=== PATIENT | female | born 1935 | race Caucasian/White ===

== ENCOUNTER 2020-11-02 16:12 | Emergency (ER) | payer MEDICARE, OTHER ==
[~2020-11-02] VITALS: Ht 152.4 cm; Wt 42.2 kg
[~2020-11-02 16:12] MED LIST: ASPI81CH PO; CEPH500 PO; Daily Vite1 EACH PO; LEVCAR2510 PO; Omeprazole20 M1 PO; SIMV10 PO
[2020-11-02 16:51] LABS: BASOPHILS ABSOLUTE AUTO 0.02 K/mm3 (0.00-0.23); BASOPHILS PERCENT AUTO 0 % (0-2); EOSINOPHILS PERCENT AUTO 2 % (0-6); Hematocrit 32.4 % (33.0-51.0); Hemoglobin 10.2 g/dL (11.5-16.0); IMMATURE GRAN ABSOLUTE AUTO 0.02 K/mm3 (0.00-0.10); IMMATURE GRAN PERCENT AUTO 0 % (0-1); LYMPHOCYTES ABSOLUTE AUTO 0.81 K/mm3 (0.84-5.20); LYMPHOCYTES PERCENT AUTO 15 % (21-46); MONOCYTES PERCENT AUTO 11 % (4-13); Mean Corpuscular HGB 30.8 pg (26.0-34.0); Mean Corpuscular HGB Conc 31.5 g/dL (31.5-36.5); Mean Corpuscular Volume 98 fL (80-100); Mean Platelet Volume 9.4 fL (9.1-12.4); NEUTROPHILS ABSOLUTE AUTO 3.89 K/mm3 (1.96-9.15); NEUTROPHILS PERCENT AUTO 72 % (41-73); Platelet Count 225 K/mm3 (150-400); RDW Coefficient Variation 14.3 % (11.7-14.2); RDW Standard Deviation 51.4 fL (35.1-46.3); Red Blood Cell Count 3.31 M/mm3 (3.80-5.20); White Blood Cell Count 5.44 K/mm3 (4.00-11.30)
[2020-11-02] MEDS ORDERED: Vitamin D2000 UNIT PO (17:05)
[2020-11-02 17:12] LABS: Alanine Aminotransfer (ALT/SGP 7 U/L (12-78); Albumin/Globulin Ratio 0.9 (0.8-1.8); Alk Phos 65 U/L (50-136); Anion Gap 4 mmol/L (6-16); Aspartate Aminotrans (AST/SGOT 25 U/L (12-37); Bilirubin, Total 0.3 mg/dL (0.1-1.0); Blood Urea Nitrogen 39 mg/dL (8-24); Bun/Creatinine Ratio 56.9 (12.0-20.0); CO2, Blood 27 mmol/L (21-32); Calcium, Blood 9.1 mg/dL (8.5-10.1); Chloride, Blood 112 mmol/L (98-108); Creatinine, Blood 0.69 mg/dL (0.40-1.00); Globulin, Blood 3.5 g/dL (2.2-4.0); Glomerular Filtration Rate >60 (60-); Glucose, Blood 108 mg/dL (70-99); Potassium, Blood 3.8 mmol/L (3.5-5.5); Sodium, Blood 143 mmol/L (136-145); Total Protein, Blood 6.5 g/dL (6.4-8.2)
[2020-11-02 20:18] LABS: Source, Urine Catheter
[2020-11-02 20:23] LABS: Appearance, Urine Hazy (Clear); Bilirubin, Urine Neg (Neg); Blood, Urine 1+ (Neg); Color, Urine Yellow (P-Yellow); Glucose Qualitative, Urine Neg (Neg); Ketones, Urine 1+ (Neg); Leukocyte Esterase, Urine Neg (Neg); Nitrite, Urine Pos (Neg); Protein, Urine 1+ (Neg); Urobilinogen, Urine NORM (Normal)
[2020-11-02 20:35] LABS: Bacteria Mod /hpf; Red Blood Cells, Urine 0-2 /hpf (0-2); Squamous Epithelial Cells Many /hpf (Few); White Blood Cells, Urine 0-2 /hpf (0-5)
[2020-11-02] MEDS ORDERED: CEPH500 PO (21:34)
== END 2020-11-02 22:15 | disposition home or self-care (01) ==
LOC: ER 16:12
PROVIDERS: Emergency Medicine; Physician Assistant
DX: G56.31 Lesion of radial nerve, right upper limb (principal); M21.331 Wrist drop, right wrist; N39.0 Urinary tract infection, site not specified; I10 Essential (primary) hypertension; K21.9 Gastro-esophageal reflux disease without esophagitis; E78.5 Hyperlipidemia, unspecified; Z79.82 Long term (current) use of aspirin; Z79.899 Other long term (current) drug therapy
CPT/HCPCS: 29125; 36415; 70450; 70496; 70498; 73110; 80053; 81001; 85025; 87077; 87086; 87186; 93005; 93010; 96374-59; 99285-25; J0696; P9612; Q9967

== ENCOUNTER 2021-06-22 09:34 | Inpatient (IN) | payer MEDICARE, OTHER ==
[~2021-06-22] VITALS: Ht 160 cm; Wt 44.5 kg
[~2021-06-22 09:34] MED LIST changes: +Vitamin D2000 UNIT PO
[2021-06-22 10:28] LABS: Source, Urine Clean Catch
[2021-06-22 10:33] LABS: Bilirubin, Urine Neg (Neg); Blood, Urine 3+ (Neg); Glucose Qualitative, Urine Neg (Neg); Ketones, Urine Neg (Neg); Leukocyte Esterase, Urine 3+ (Neg); Nitrite, Urine Pos (Neg); Protein, Urine 2+ (Neg); Specific Gravity, Urine 1.015 (1.003-1.022); Urobilinogen, Urine NORM (Normal)
[2021-06-22 10:41] LABS: Appearance, Urine Cloudy (Clear); Color, Urine Yellow (P-Yellow)
[2021-06-22 10:43] LABS: Bacteria Many /hpf; Red Blood Cells, Urine 0-2 /hpf (0-2); Squamous Epithelial Cells Few /hpf (Few); White Blood Cells, Urine 25-50 /hpf (0-5)
[2021-06-22 11:19] LABS: BASOPHILS ABSOLUTE AUTO 0.01 K/mm3 (0.00-0.23); BASOPHILS PERCENT AUTO 0 % (0-2); EOSINOPHILS ABSOLUTE AUTO 0.01 K/mm3 (0.00-0.68); EOSINOPHILS PERCENT AUTO 0 % (0-6); Hematocrit 26.8 % (33.0-51.0); Hemoglobin 7.9 g/dL (11.5-16.0); IMMATURE GRAN ABSOLUTE AUTO 0.05 K/mm3 (0.00-0.10); IMMATURE GRAN PERCENT AUTO 1 % (0-1); LYMPHOCYTES ABSOLUTE AUTO 0.36 K/mm3 (0.84-5.20); LYMPHOCYTES PERCENT AUTO 5 % (21-46); MONOCYTES ABSOLUTE AUTO 0.71 K/mm3 (0.16-1.47); MONOCYTES PERCENT AUTO 10 % (4-13); Mean Corpuscular HGB 24.3 pg (26.0-34.0); Mean Corpuscular HGB Conc 29.5 g/dL (31.5-36.5); Mean Corpuscular Volume 83 fL (80-100); Mean Platelet Volume 9.7 fL (9.1-12.4); NEUTROPHILS ABSOLUTE AUTO 6.03 K/mm3 (1.96-9.15); NEUTROPHILS PERCENT AUTO 84 % (41-73); Platelet Count 221 K/mm3 (150-400); RDW Coefficient Variation 17.4 % (11.7-14.2); RDW Standard Deviation 51.9 fL (35.1-46.3); Red Blood Cell Count 3.25 M/mm3 (3.80-5.20); White Blood Cell Count 7.17 K/mm3 (4.00-11.30)
[2021-06-22 11:45] LABS: Alanine Aminotransfer (ALT/SGP 7 U/L (12-78); Albumin, Blood 2.3 g/dL (3.4-5.0); Albumin/Globulin Ratio 0.5 (0.8-1.8); Alk Phos 57 U/L (50-136); Anion Gap 7 mmol/L (6-16); Aspartate Aminotrans (AST/SGOT 15 U/L (12-37); Bilirubin, Total 0.3 mg/dL (0.1-1.0); Blood Urea Nitrogen 25 mg/dL (8-24); Bun/Creatinine Ratio 34.4 (12.0-20.0); CO2, Blood 25 mmol/L (21-32); Calcium, Blood 8.7 mg/dL (8.5-10.1); Chloride, Blood 106 mmol/L (98-108); Creatinine, Blood 0.73 mg/dL (0.40-1.00); Globulin, Blood 4.2 g/dL (2.2-4.0); Glomerular Filtration Rate >60 (60-); Glucose, Blood 111 mg/dL (70-99); Potassium, Blood 3.7 mmol/L (3.5-5.5); Sodium, Blood 138 mmol/L (136-145); Total Protein, Blood 6.5 g/dL (6.4-8.2)
[2021-06-22] MEDS ORDERED: Sinemet 25-1001 EACH PO (12:49)
[2021-06-22] MEDS ORDERED: CEPH500 PO (12:50)
[2021-06-22] MEDS ORDERED: DAILY-VITE1 EAC1 PO (12:51)
[2021-06-22] MEDS ORDERED: OMEP20ER PO (12:52)
[2021-06-22] MEDS ORDERED: SIMV10 PO (12:53)
[2021-06-22] MEDS ORDERED: Vitamin D PO (12:55)
[2021-06-22 13:28] LABS: International Normalized Ratio 1.08; Prothrombin Time Results 11.3 Sec (9.7-11.5)
[2021-06-22 13:54] LABS: Influenza A, PCR NEGATIVE (NEGATIVE); Influenza B, PCR NEGATIVE (NEGATIVE); Resp Syncytial Virus, PCR NEGATIVE (NEGATIVE); SARS-Cov-2 (COVID-19) PCR, MMC NEGATIVE (NEGATIVE)
--- NOTE | 2021-06-22 18:25 | NUR ---
ASSUMED CARE: PT TRANSFERRED VIA BED TO ROOM 348. REPORT RECIEVED FROM [facility]. PT AWAKE BUT PRESENTS WITH WORD SALAD. BED ALARM ON. IVF RUNNING. SIGN ON DOOR FOR NPO AT NC. NO ACUTE NEEDS AT THIS TIME.
[2021-06-23 04:28] LABS: BASOPHILS ABSOLUTE AUTO 0.02 K/mm3 (0.00-0.23); BASOPHILS PERCENT AUTO 0 % (0-2); EOSINOPHILS ABSOLUTE AUTO 0.07 K/mm3 (0.00-0.68); EOSINOPHILS PERCENT AUTO 1 % (0-6); Hematocrit 27.2 % (33.0-51.0); IMMATURE GRAN ABSOLUTE AUTO 0.04 K/mm3 (0.00-0.10); IMMATURE GRAN PERCENT AUTO 1 % (0-1); LYMPHOCYTES PERCENT AUTO 10 % (21-46); MONOCYTES ABSOLUTE AUTO 0.72 K/mm3 (0.16-1.47); MONOCYTES PERCENT AUTO 12 % (4-13); Mean Corpuscular HGB 23.7 pg (26.0-34.0); Mean Corpuscular HGB Conc 29.4 g/dL (31.5-36.5); Mean Corpuscular Volume 81 fL (80-100); Mean Platelet Volume 9.7 fL (9.1-12.4); NEUTROPHILS PERCENT AUTO 76 % (41-73); Platelet Count 211 K/mm3 (150-400); RDW Coefficient Variation 17.3 % (11.7-14.2); RDW Standard Deviation 50.4 fL (35.1-46.3); Red Blood Cell Count 3.37 M/mm3 (3.80-5.20); White Blood Cell Count 6.05 K/mm3 (4.00-11.30)
[2021-06-23 04:56] LABS: Alanine Aminotransfer (ALT/SGP 6 U/L (12-78); Albumin, Blood 2.2 g/dL (3.4-5.0); Albumin/Globulin Ratio 0.6 (0.8-1.8); Alk Phos 62 U/L (50-136); Anion Gap 7 mmol/L (6-16); Aspartate Aminotrans (AST/SGOT 19 U/L (12-37); Bilirubin, Total 0.4 mg/dL (0.1-1.0); Blood Urea Nitrogen 18 mg/dL (8-24); Bun/Creatinine Ratio 27.1 (12.0-20.0); CO2, Blood 25 mmol/L (21-32); Chloride, Blood 107 mmol/L (98-108); Creatinine, Blood 0.66 mg/dL (0.40-1.00); Globulin, Blood 3.5 g/dL (2.2-4.0); Glomerular Filtration Rate >60 (60-); Glucose, Blood 95 mg/dL (70-99); Magnesium, Blood 1.8 mg/dL (1.6-2.4); Potassium, Blood 3.1 mmol/L (3.5-5.5); Sodium, Blood 139 mmol/L (136-145); Total Protein, Blood 5.7 g/dL (6.4-8.2)
--- NOTE | 2021-06-23 05:49 | NUR ---
PATIENT HAS SEVERE DEMENTIA AND IS VERY RESISTANT TO CARER. PATIIENT IS VERY IMPULSIVE. PATIENT GRABS AT THINGS AND REFUSES TO LET THEM GO. 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 PATIENTS IV INFILTRATED AND ALL ATTEMPTS TO OBTAIN ANOTHER WERE UNSUCESSFUL. A POWER GLIDE WILL NEED TO BE INSERTED ON THE AM SHIFT. CHARGE NURSE NOTIFIED. PATIENT'S BLOOD CULTURE CAME BACK POSITIVE FOR GRAM NEGATIVE bACILLI. DR Espinosa NOTIFIED NO ADDITION ORDERS GIVEN.
--- NOTE | 2021-06-23 17:30 | NUR ---
PT HAS SOME BREAKDOWN OF SKIN NEAR RECTUM, BARRIER CREAM APPLIED. SMALL RASH ON RIGHT HIP APPEARED FROM BEING MOIST. PATTED DRY AND SILISON BARRIER CREAM APPLIED. WILL PASS ON INFO IN SHIFT REPORT.
--- NOTE | 2021-06-23 18:34 | NUR ---
SHIFT SUMMARY PT WAS NPO THIS MORNING EXCPET FOR 1 TAB ATIVAN TO KEEP PT STILL AND CALM THROUGH IV PLACEMENT. THIS HELD OFF SCOPE UNTIL TOMORROW EVENING/NIGHT. PT HAS BEEN ASLEEP MOST OF THE DAY. SHE IS VERY CONFUSED WITH WORD SALAD WHEN SHE WAKES.SOME REDNESS WAS NOTED DURING BED BATHS AND BARRIER CREAM WAS APPLIED. WILL CONTINUE TO MONITOR.
--- NOTE | 2021-06-24 04:39 | NUR ---
the patient rested during most of the shift. She was incontinent os bowel and bladder. N/S is running at 125 ml and hour through a right forearm PIV. Paatient is to remain NPO until after her 1300 scope per MD nothing is to be given by mouth including medications.
[2021-06-24 05:46] LABS: Hematocrit 26.1 % (33.0-51.0); Hemoglobin 7.8 g/dL (11.5-16.0); Mean Corpuscular HGB 24.5 pg (26.0-34.0); Mean Corpuscular HGB Conc 29.9 g/dL (31.5-36.5); Mean Corpuscular Volume 82 fL (80-100); Mean Platelet Volume 10.1 fL (9.1-12.4); Platelet Count 207 K/mm3 (150-400); RDW Coefficient Variation 17.2 % (11.7-14.2); RDW Standard Deviation 51.6 fL (35.1-46.3); Red Blood Cell Count 3.18 M/mm3 (3.80-5.20); White Blood Cell Count 4.36 K/mm3 (4.00-11.30)
[2021-06-24 06:41] LABS: Alanine Aminotransfer (ALT/SGP 15 U/L (12-78); Albumin/Globulin Ratio 0.6 (0.8-1.8); Alk Phos 56 U/L (50-136); Anion Gap 12 mmol/L (6-16); Aspartate Aminotrans (AST/SGOT 20 U/L (12-37); Bilirubin, Total 0.3 mg/dL (0.1-1.0); Blood Urea Nitrogen 14 mg/dL (8-24); Bun/Creatinine Ratio 23.4 (12.0-20.0); CO2, Blood 17 mmol/L (21-32); Calcium, Blood 8.3 mg/dL (8.5-10.1); Chloride, Blood 115 mmol/L (98-108); Globulin, Blood 3.4 g/dL (2.2-4.0); Glomerular Filtration Rate >60 (60-); Glucose, Blood 59 mg/dL (70-99); Potassium, Blood 4.2 mmol/L (3.5-5.5); Sodium, Blood 144 mmol/L (136-145); Total Protein, Blood 5.4 g/dL (6.4-8.2)
[2021-06-24] MEDS ORDERED: Vitamin D1000 UNI1 PO (10:43)
[2021-06-24] MEDS ORDERED: ACET500 PO (10:44)
--- NOTE | 2021-06-24 16:32 | NUR ---
BROUGHT TO [facility] ADMISSION STARTED PATIENT NO ALERT AND ORIENTED BUT ANSWERS TO NAME. WHEN ASKED DAY OF WEEK SHE WAS WITHIN ONE DAY AND COULD NOT SAY WHAT KIND OF BUILDING WHE WAS IN.
--- NOTE | 2021-06-24 17:04 | NUR ---
FLUSHED IV SOME REDNESS AT SITE. IV FLUSHED AND ABLE TO GIVE D5 THROUGH IT. PLAN TO PLACE ANOTHER5 IV IN SCOPE YOU ONCE SEDATION TAKES EFFECT TO STRESS PATIENT OUT LESS.
--- NOTE | 2021-06-24 17:16 | NUR ---
SHIFT SUMMARY PATIENT ALERT TO SELF THIS SHIFT. PATIENT TALKS WITH STAFF, BUT OFTEN ENDS IN WORD SALAD. PATIENT CALM, PLEASANT, AND COOPERATIVE WITH CARE THIS SHIFT. PATIENT REMAINS NPO THROUGHOUT THIS SHIFT FOR EGD. PATIENT'S BLOOD GLUCOSE 59 WITH MORNING LABS. WHEN RECHECKED BLOOD GLUCOSE 54. DR CONTACTED, D5 ORDERED AND ADMINISTERED, BLOOD GLUCOSE TO 60. DR NOTIFIED AND SECOND DOSE ORDERED AND ADMINISTERED, BLOOD GLUCOSE 90. PATIENT CALM THROUGHOUT THE REMAINDER OF THE SHIFT. PATIENT DOWN TO EGD AT APPROXIMATELY 1600. PATIENT CURRENTLY AT PROCEDURE.
--- NOTE | 2021-06-24 17:47 | NUR ---
06/24/21 1747 Abdifatah Denise History, Chart, Medications and Allergies reviewed before start of procedure. Patient confirms NPO status and agrees with scheduled surgery. 3-LEAD EKG REVIEWED WITH PHYSICIAN PRIOR TO START OF PROCEDURE. MONITOR INTACT WITH CONTINUOUS PULSE OXIMETRY AND INTERMITTENT BP. PATIENT DETERMINED TO BE ASA APPROPRIATE FOR PROPOFOL SEDATION PRIOR TO START OF PROCEDURE BY DR. STOKES. BB USED DURING PROCEDURE.
[2021-06-24] MEDS ORDERED: SIMV10 PO (22:16)
[2021-06-25 05:22] LABS: BASOPHILS ABSOLUTE AUTO 0.01 K/mm3 (0.00-0.23); BASOPHILS PERCENT AUTO 0 % (0-2); EOSINOPHILS ABSOLUTE AUTO 0.04 K/mm3 (0.00-0.68); EOSINOPHILS PERCENT AUTO 1 % (0-6); Hematocrit 25.4 % (33.0-51.0); Hemoglobin 7.8 g/dL (11.5-16.0); IMMATURE GRAN ABSOLUTE AUTO 0.02 K/mm3 (0.00-0.10); IMMATURE GRAN PERCENT AUTO 0 % (0-1); LYMPHOCYTES ABSOLUTE AUTO 0.46 K/mm3 (0.84-5.20); LYMPHOCYTES PERCENT AUTO 10 % (21-46); MONOCYTES ABSOLUTE AUTO 0.37 K/mm3 (0.16-1.47); MONOCYTES PERCENT AUTO 8 % (4-13); Mean Corpuscular HGB 24.3 pg (26.0-34.0); Mean Corpuscular HGB Conc 30.7 g/dL (31.5-36.5); Mean Corpuscular Volume 79 fL (80-100); Mean Platelet Volume 9.2 fL (9.1-12.4); NEUTROPHILS ABSOLUTE AUTO 3.57 K/mm3 (1.96-9.15); NEUTROPHILS PERCENT AUTO 80 % (41-73); Platelet Count 249 K/mm3 (150-400); RDW Standard Deviation 49.2 fL (35.1-46.3); Red Blood Cell Count 3.21 M/mm3 (3.80-5.20); White Blood Cell Count 4.47 K/mm3 (4.00-11.30)
--- NOTE | 2021-06-25 05:43 | NUR ---
Patient slept for several hours after returning from her EGD. Wgen she awakend she was very impulsive attempting to throw her legs over the side of the bed. This continued frequently. Order for shruthi pimentel ws obtained and zyprexa 5 to 10mg q6 hrs as need
[2021-06-25 06:52] LABS: Anion Gap 12 mmol/L (6-16); Blood Urea Nitrogen 9 mg/dL (8-24); Bun/Creatinine Ratio 14.8 (12.0-20.0); CO2, Blood 21 mmol/L (21-32); Calcium, Blood 8.4 mg/dL (8.5-10.1); Chloride, Blood 108 mmol/L (98-108); Creatinine, Blood 0.61 mg/dL (0.40-1.00); Glomerular Filtration Rate >60 (60-); Glucose, Blood 89 mg/dL (70-99); Magnesium, Blood 1.8 mg/dL (1.6-2.4); Phosphorus, Blood 2.4 mg/dL (2.5-4.9); Potassium, Blood 3.4 mmol/L (3.5-5.5); Sodium, Blood 141 mmol/L (136-145)
[2021-06-25] MEDS ORDERED: CEFD300 PO (09:56)
[2021-06-25] MEDS ORDERED: ONDA4ODT MM (09:57)
[2021-06-25] MEDS ORDERED: K-Phos Origina500 MG PO (09:59)
[2021-06-25] MEDS ORDERED: VISBIOME 112.51 EACH PO (10:00)
--- NOTE | 2021-06-25 12:51 | NUR ---
DISCHARGE SUMMARY PATIENT DISCHARGED TO HOME WITH HOME HEALTH BACK TO [facility]. PATIENT ALERT, ORIENTED TO SELF THIS SHIFT. PATIENT HAS BEEN CALM AND COOPERATIVE WITH CARE THROUGHOUT THIS SHIFT. PATIENT FOLLOWS SIMPLE DIRECTIONS THIS SHIFT. PATIENT UP WITH 1 ASSIST THIS PRIOR TO DISCHARGE. PATIENT UP TO WHEELCHAIR WITH 1 ASSIST. PATIENT BELONGINGS WITH PATIENT UPON DISCHARGE. FACILITY NOTIFIED OF PATIENT CONDITION AND TRANSPORTING.
--- NOTE | 2021-06-25 15:47 | NUR ---
Received referral from nurse managed care analyst (Suzy Pérez) on . Patient discharged 06/25/2021 with orders for home health and elected [facility]. Contacted patient's home number listed on demographic sheet to further discuss the above. Spoke with patient's caregiver regarding the above. Patient's caregier is agreeable to the above. Discussed homebound status definition with patient's caregiver. Patient's caregiver verbalized understanding. Discussed what home health is vs what it is not (in home caregivers/housekeeping). Patient's caregiver verbalized understanding. Discussed the next steps in the process of an initial assessment to determine frequency of visits. Again patient's caregiver verbalized understanding. Offered a chance for patient's caregiver to ask questions regarding the above of which there were none. Gathered all supporting documentation for referral (face sheet, face to face, med list, H&P, discharge summary, and most recent PT assessment) and sent to [facility] for review. No further interventions required. Coleen Miguel Referral Liaison
== END 2021-06-25 12:33 | disposition home health service (06) | DRG 871 ==
LOC: ER 09:34 → MEDS 12:50 → ERHOLD 12:50 → MEDS 14:25
PROVIDERS: Internal Medicine Gastroenterology; Physician Assistant; ADMIT Family Medicine
PROC: 0W3P8ZZ Control Bleeding in Gastrointestinal Tract, Via Natural or Artificial Opening Endoscopic (ICD-10-PCS; principal; 2021-06-24 16:30)
DX: A41.51 Sepsis due to Escherichia coli [E. coli] (principal); K31.811 Angiodysplasia of stomach and duodenum with bleeding; N39.0 Urinary tract infection, site not specified; G93.49 Other encephalopathy; F02.80 Dementia in other diseases classified elsewhere, unspecified severity, without behavioral disturbance, psychotic disturbance, mood disturbance, and anxiety; G20 Parkinson's disease; I10 Essential (primary) hypertension; K21.9 Gastro-esophageal reflux disease without esophagitis; Z20.822 Contact with and (suspected) exposure to COVID-19; E16.2 Hypoglycemia, unspecified; E78.5 Hyperlipidemia, unspecified; K44.9 Diaphragmatic hernia without obstruction or gangrene; D50.9 Iron deficiency anemia, unspecified; G25.0 Essential tremor; Z87.891 Personal history of nicotine dependence; Z79.899 Other long term (current) drug therapy; Z78.1 Physical restraint status
CPT/HCPCS: 0241U; 36415; 51701; 80048; 80053; 81001; 82272; 82947; 83605; 83690; 83735; 84100; 84145; 85025; 85027; 85610; 85730; 86850; 86900; 86901; 87040; 87077; 87086; 87186; 94760; 96374; 96375; 99285; A9270; C9113; J0696; J2704; J3480; J7030; J7120; J7121

== ENCOUNTER 2021-06-27 05:25 | Emergency (ER) | payer MEDICARE, OTHER ==
[~2021-06-27] VITALS: Ht 162.6 cm; Wt 59.0 kg
[~2021-06-27 05:25] MED LIST changes: +ACET500 PO; +CEFD300 PO; +DAILY-VITE1 EAC1 PO; +K-Phos Origina500 MG PO; +OMEP20ER PO; +ONDA4ODT MM; +Sinemet 25-1001 EACH PO; +VISBIOME 112.51 EACH PO; +Vitamin D PO; +Vitamin D1000 UNI1 PO
[2021-06-27 06:34] LABS: BASOPHILS ABSOLUTE AUTO 0.02 K/mm3 (0.00-0.23); BASOPHILS PERCENT AUTO 0 % (0-2); EOSINOPHILS ABSOLUTE AUTO 0.13 K/mm3 (0.00-0.68); EOSINOPHILS PERCENT AUTO 2 % (0-6); Hematocrit 24.1 % (33.0-51.0); Hemoglobin 7.2 g/dL (11.5-16.0); IMMATURE GRAN ABSOLUTE AUTO 0.09 K/mm3 (0.00-0.10); IMMATURE GRAN PERCENT AUTO 1 % (0-1); LYMPHOCYTES PERCENT AUTO 11 % (21-46); MONOCYTES ABSOLUTE AUTO 0.48 K/mm3 (0.16-1.47); MONOCYTES PERCENT AUTO 5 % (4-13); Mean Corpuscular HGB 24.2 pg (26.0-34.0); Mean Corpuscular HGB Conc 29.9 g/dL (31.5-36.5); Mean Corpuscular Volume 81 fL (80-100); Mean Platelet Volume 9.9 fL (9.1-12.4); NEUTROPHILS ABSOLUTE AUTO 7.13 K/mm3 (1.96-9.15); NEUTROPHILS PERCENT AUTO 81 % (41-73); Platelet Count 323 K/mm3 (150-400); RDW Coefficient Variation 17.4 % (11.7-14.2); RDW Standard Deviation 51.8 fL (35.1-46.3); Red Blood Cell Count 2.97 M/mm3 (3.80-5.20); White Blood Cell Count 8.85 K/mm3 (4.00-11.30)
[2021-06-27] MEDS ORDERED: SUCR1 PO (07:51)
== END 2021-06-27 08:25 | disposition home or self-care (01) ==
LOC: ER 05:25
PROVIDERS: Emergency Medicine
DX: K92.2 Gastrointestinal hemorrhage, unspecified (principal); I10 Essential (primary) hypertension; K21.9 Gastro-esophageal reflux disease without esophagitis; E78.5 Hyperlipidemia, unspecified; Z79.899 Other long term (current) drug therapy
CPT/HCPCS: 85025; 93005; 93010; 99284-25